=== PATIENT | female | born 1980 | race Caucasian/White ===

== ENCOUNTER 2016-07-15 19:09 | Emergency (ER) | payer BC ==
[2016-07-15 19:25] VITALS: BP 100/72; PULSE 91; TEMP 97.6; BMI 21.4
--- NOTE | 2016-07-15 19:38 | PDOC ---
History of Present Illness - General History Source: Patient - History of Present Illness Initial Comments: 07/15/16 20:05 The patient is a 36 year old female with no significant past medical history who presents to the Emergency Department with complaints of epigastric pain since 11am and diarrhea x4 since 6pm. Pt states that she had a chicken salad today, but her epigastric pain started before she ate. She denies nausea or vomiting. She denies any heavy lifting. Pt denies fever, chill, hematuria, dysuria, chest pain, SOB, headache. (-) sick contact SH:non smoker. No EtOH use <Daphnie Peoples - Last Filed: 07/15/16 20:04> <Fe Brooks - Last Filed: 07/16/16 06:21> - General Chief Complaint: Pain, Acute Stated Complaint: ABDOMINAL PAIN Time Seen by Provider: 07/15/16 19:37 Past History <Daphnie Peoples - Last Filed: 07/15/16 20:04> - Past Medical History Other medical history: denies - Psycho/Social/Smoking Cessation Hx Suicidal Ideation: No Smoking History: Unknown if ever smoked Hx Alcohol Use: No Drug/Substance Use Hx: No <Fe Brooks - Last Filed: 07/16/16 06:21> - Past Medical History Allergies/Adverse Reactions: Allergies Allergy/AdvReac Type Severity Reaction Status Date / Time No Known Allergies Allergy Verified 07/15/16 19:23 Home Medications: Ambulatory Orders NK [No Known Home Medication] 07/15/16 Review of Systems - Review of Systems Able to Perform ROS?: Yes Comments:: 07/15/16 20:05 GENERAL/CONSTITUTIONAL: No: fever, chills, weakness, loss of appetite. HEAD, EYES, EARS, NOSE AND THROAT: No: change in vision, ear pain, discharge, sore throat, throat swelling. CARDIOVASCULAR: No: chest pain, lightheadedness, palpitations, syncope RESPIRATORY: No: cough, shortness of breath, wheezing, hemoptysis, stridor. GASTROINTESTINAL: Yes: epigasric pain, diarrhea No: nausea, vomiting, rectal bleeding, constipation. GENITOURINARY: No: dysuria, hematuria, frequency, urgency, flank pain. MUSCULOSKELETAL: No: back pain, neck pain, joint pain, muscle swelling or pain SKIN AND BREASTS: No: lesions, pallor, rash or easy bruising. NEUROLOGIC: No: headache, vertigo, paresthesias, weakness ENDOCRINE: No: unexplained weight gain or loss HEMATOLOGIC/LYMPHATIC: No: anemia, easy bleeding, swelling nodes All Other Systems: Reviewed and Negative <Daphnie Peoples - Last Filed: 07/15/16 20:04> *Physical Exam - Vital Signs Last Vital Signs Temp Pulse Resp BP Pulse Ox 97.6 F 91 H 18 100/72 100 07/15/16 19:24 07/15/16 19:24 07/15/16 19:24 07/15/16 19:24 07/15/16 19:24 - Physical Exam Comments: 07/15/16 20:06 GENERAL: The patient is in no acute distress. HEAD: Normal with no signs of trauma. EYES: PERRLA, EOMI, sclera anicteric, conjunctiva clear. ENT: Ears normal, nares patent, oropharynx clear without exudates. Moist mucous membranes. NECK: Normal range of motion, supple without lymphadenopathy, JVD, or masses. LUNGS: Breath sounds equal, clear to auscultation bilaterally. No wheezes, and no crackles. HEART:Regular rate and rhythm, normal S1 and S2 without murmur, rub or gallop. ABDOMEN: +decreased bowel sound. Soft, nontender. No guarding, no rebound. EXTREMITIES: Normal range of motion, no edema. No clubbing or cyanosis. No erythema, or tenderness. NEUROLOGICAL: Cranial nerves II through XII grossly intact. Normal speech. No focal neurological deficits. MUSCULOSKELETAL: Back non-tender to palpation, no CVA tenderness SKIN: Warm, Dry, normal turgor, no rashes or lesions noted. <Daphnie Peoples - Last Filed: 07/15/16 20:04> - Vital Signs Last Vital Signs Temp Pulse Resp BP Pulse Ox 97.6 F 91 H 18 100/72 100 07/15/16 19:24 07/15/16 19:24 07/15/16 19:24 07/15/16 19:24 07/15/16 19:24 <Fe Brooks - Last Filed: 07/16/16 06:21> ED Treatment Course - ADDITIONAL ORDERS Additional order review: Laboratory Results 07/15/16 19:50 Urine HCG, Qual Negative <Daphnie Peoples - Last Filed: 07/15/16 20:04> - LABORATORY CBC & Chemistry Diagram: 07/15/16 19:50 07/15/16 19:50 <Fe Brooks - Last Filed: 07/16/16 06:21> Medical Decision Making - Medical Decision Making 07/15/16 20:10 Pt comes with multiple episodes of diarrhea that began at 6PM; epigastric discomfort started at 11AM, at which point she ate some store bought chicken barrera. Now with diarrhea, and no fever, no vomiting. No flank pain and no other complaints. SHe has no PMHx, and no surgeries on her abd in the p-ast. Pt will have labs checked and she will be hydrated. Her physical exam is normal ; the only positive finding is decreased bowel sounds throughout. 07/16/16 06:20 Flat and upright of abdomen is normal; labs are normal and she is feeling better with hydration x 2 L. She will go home. This is likely food poisoning due to a staph toxin. <Fe Brooks - Last Filed: 07/16/16 06:21> *DC/Admit/Observation/Transfer - Attestations Scribe Attestion: 07/15/16 20:06 Documentation prepared by Daphnie Peoples, acting as medical biller for Fe Brooks MD. <Daphnie Peoples - Last Filed: 07/15/16 20:04> - Discharge Dispostion Admit: No <Fe Brooks - Last Filed: 07/16/16 06:21> Diagnosis at time of Disposition: Diarrhea due to staphylococcal toxin - Discharge Dispostion Disposition: HOME Condition at time of disposition: Improved - Patient Instructions Printed Discharge Instructions: Diarrhea
[2016-07-15] MEDS ORDERED: SODIUM CHLORIDE 0.9% 500 ML INFUS.BAG IV ONE (19:55)
[2016-07-15] MEDS ORDERED: FAMOTIDINE 20 MG/50 ML IVPB 50 ML IVPB ONE ×2 (19:55→19:59)
[2016-07-15] MEDS ORDERED: LOPERAMIDE HCL 2 MG CAPSULE PO ONE (19:56)
[2016-07-15] MEDS ORDERED: LOPERAMIDE HCL 2 MG CAPSULE ONE (19:59)
[2016-07-15 20:04] LABS: URINE APPEARANCE CLEAR; URINE BILIRUBIN NEGATIVE (NEGATIVE); URINE BLOOD NEGATIVE (NEGATIVE); URINE COLOR STRAW; URINE GLUCOSE (UA) NEGATIVE (NEGATIVE); URINE KETONE 1+ (NEGATIVE); URINE LEUK ESTERASE NEGATIVE (NEGATIVE); URINE NITRITE NEGATIVE (NEGATIVE); URINE PROTEIN NEGATIVE (NEGATIVE); URINE UROBILINOGEN NEGATIVE E.U./dl (0.2-1.0)
[2016-07-15 20:12] LABS: PLATELET COUNT 187 K/MM3 (134-434)
[2016-07-15 20:23] LABS: BASOPHIL 0.7 % (0-2.0); EOSINOPHIL 0.9 % (0-4.5); MCH 29.1 pg (25.7-33.7); MCHC 34.1 g/dl (32.0-36.0); MEAN CELL VOLUME 85.3 fl (80-96); MEAN PLT VOLUME 10.1 fl (7.5-11.1); NEUTROPHILS 84.2 % (42.8-82.8); RDW 13.3 % (11.6-15.6)
[2016-07-15 20:30] LABS: AMYLASE 95 U/L (25-115)
[2016-07-15 20:35] LABS: ALBUMIN 4.2 g/dl (3.4-5.0); ANION GAP 9 (8-16); BILIRUBIN,TOTAL 0.5 mg/dL (0.2-1.0); CALCIUM 9.1 mg/dL (8.5-10.1); CO2 25 mmol/L (21-32); GLUCOSE,RANDOM 111 mg/dL (74-106); SGOT/AST 15 U/L (15-37); SGPT/ALT 20 U/L (12-78); TOT PROT 7.8 g/dl (6.4-8.2)
[2016-07-15 20:36] LABS: ALK PHOS 62 U/L (45-117)
[2016-07-15] MEDS ORDERED: DEXTROSE 5%-NORMAL SALINE 1,000 ML IV SCH (20:45)
[2016-07-15] MEDS ORDERED: morphine CARPU-JECT 2 MG/1 ML DISP.SYRIN IVPUSH ONE (21:04)
[2016-07-15] MEDS ORDERED: morphine CARPU-JECT 2 MG/1 ML DISP.SYRIN ONE (21:06)
== END 2016-07-15 22:06 | disposition home or self-care (01) ==
LOC: JER 19:09
PROC: 3E033GC Introduction of Other Therapeutic Substance into Peripheral Vein, Percutaneous Approach (ICD-10-PCS; principal; 2016-07-15)
PROC: 3E033GC Introduction of Other Therapeutic Substance into Peripheral Vein, Percutaneous Approach (ICD-10-PCS; 2016-07-15)
PROC: 3E033NZ Introduction of Analgesics, Hypnotics, Sedatives into Peripheral Vein, Percutaneous Approach (ICD-10-PCS; 2016-07-15)
DX: A05.0 Foodborne staphylococcal intoxication (principal)
CPT/HCPCS: 36415; 74020-TC; 80053; 81003; 82150; 83690; 84703; 85025; 99283-25